=== PATIENT | female | born 1965 | race Caucasian/White ===

== ENCOUNTER → 2022-06-21 | Outpatient (CLI) | payer BC | LOC: COL.RAD 13:27 | DX: M25.551 Pain in right hip (principal) | CPT/HCPCS: J3301; Q9967 ==

== ENCOUNTER → 2024-04-26 | Outpatient (CLI) | payer BC | LOC: MC.RAD 13:57 | DX: Z12.31 Encounter for screening mammogram for malignant neoplasm of breast (principal) ==